=== PATIENT | female | born 1975 | race Hispanic/Latino ===

== ENCOUNTER 2024-04-07 06:45 | Day surgery (SDC) | payer BC ==
[2024-03-29 09:01] VITALS: BP 144/84; PULSE 74; RESP 18
[2024-03-29 09:07] LABS: BASOPHILS # (AUTO) 0.05 K/uL (0.00-0.20); BASOPHILS % (AUTO) 0.9 % (0.0-5.0); EOSINOPHILS # (AUTO) 0.15 K/uL (0.00-0.70); EOSINOPHILS % (AUTO) 2.7 % (0.0-8.0); HEMATOCRIT 45.9 % (36-48); IMMATURE GRANULOCYTE ABSOLUTE 0.03 K/uL (0-1); LYMPHOCYTES # (AUTO) 1.9 K/uL (1.0-4.8); LYMPHOCYTES % (AUTO) 33.6 % (21.0-51.0); MEAN CORPUSCULAR HEMOGLOBIN 31.2 pg (27.0-33.0); MEAN CORPUSCULAR HGB CONC 34.2 g/dL (32.0-36.0); MEAN CORPUSCULAR VOLUME 91.1 fL (79-99); MONOCYTES # (AUTO) 0.5 K/uL (0.1-1.0); MONOCYTES % (AUTO) 9.7 % (3.0-13.0); NEUTROPHILS # (AUTO) 2.9 K/uL (1.8-7.7); NEUTROPHILS % (AUTO) 52.6 % (40.0-77.0); PLATELET COUNT (AUTO) 45 K/uL (130-400); RED BLOOD CELL COUNT(AUTO) 5.04 MIL/uL (4.00-5.50); RED CELL DISTRIBUTION WIDTH 14.3 % (11.0-15.5); WHITE BLOOD COUNT (AUTO) 5.6 K/uL (4.8-10.8)
[2024-03-29 09:16] LABS: CREATININE 0.7 mg/dL (0.5-1.0)
[2024-03-29 09:20] LABS: INR 1.02 (0.85-1.15)
[~2024-04-07] VITALS: Ht 149.9 cm; Wt 93.1 kg
[2024-04-07] VITALS (16 sets, daily range): BP systolic 113–149; BP diastolic 66–86; PULSE 58–72; RESP 13–18
[~2024-04-07 06:45] MED LIST: [UNRECOGNIZED DRUG - OTHER] SQ
[2024-04-07] MEDS ORDERED: CLINDAMYCIN IVPB 600MG/50ML 50 ML IV ONE (07:40)
[2024-04-07] MEDS ORDERED: IOHEXOL-350 50ML VIAL IV ONE (07:46)
[2024-04-07] MEDS: LACTATED RINGERS 1000ML 1,000 ML IV ONE (08:01)
[2024-04-07] MEDS ORDERED: MIDAZOLAM HCL 1 MG/ML 2ML VIAL ONE (08:21)
[2024-04-07] MEDS ORDERED: FENTANYL CITRATE PF 50 MCG/1 ML 2ML VIAL ONE (08:21)
[2024-04-07] MEDS ORDERED: LIDOCAINE PF 100MG/5ML (2%) SYRINGE 5ML ONE (08:21)
[2024-04-07] MEDS ORDERED: ROCURONIUM BROMIDE 10MG/1ML 5ML VL ONE (08:21)
[2024-04-07] MEDS ORDERED: PROPOFOL 10 MG/ML 20ML VIAL IV ONE (08:21)
[2024-04-07] MEDS ORDERED: EPINEPHRINE PF 1MG (1:1,000) 1 MG/ML AMP ONE (08:26)
[2024-04-07] MEDS ORDERED: BUPIVACAINE/PF 0.5% 30ML VIAL ONE (08:26)
[2024-04-07] MEDS ORDERED: ACETAMINOPHEN 1,000 MG/100 ML VIAL IV ONE (08:31)
[2024-04-07] MEDS ORDERED: MORPHINE 4 MG SYG ONE (08:31)
[2024-04-07] MEDS ORDERED: DEXAMETHASONE SOD PHOSPHATE 4 MG/ML 1ML VIAL ONE (08:46)
[2024-04-07] MEDS ORDERED: ONDANSETRON 4MG INJ ONE (08:46)
[2024-04-07] MEDS ORDERED: NEOSTIGMINE METHYLSULFATE 1MG/ML IV ONE (08:47)
[2024-04-07] MEDS ORDERED: GLYCOPYRROLATE 0.2 MG/ML 5 ML VIAL ONE (08:47)
[2024-04-07] MEDS: BUPIVACAINE/EPI/PF 0.5% 30ML VIAL IJ ONE (08:50)
[2024-04-07] MEDS ORDERED: PHENYLEPHRINE HCL 10 MG/ML 1ML VIAL IV ONE (08:52)
[2024-04-07] MEDS ORDERED: DOCU-116 PO (09:23)
[2024-04-07] MEDS ORDERED: METH-662 PO (09:23)
[2024-04-07] MEDS ORDERED: TRAM50TA4 PO (09:23)
[2024-04-07] MEDS ORDERED: GABA-529 PO (09:23)
[2024-04-07] MEDS: MEPERIDINE-PF 25 MG/ML SYG ONE (09:53)
== END 2024-04-07 11:20 | disposition home or self-care (01) ==
LOC: DAH 06:45
PROVIDERS: ATTEND Surgery
DX: K80.10 Calculus of gallbladder with chronic cholecystitis without obstruction (principal); R31.9 Hematuria, unspecified; D69.6 Thrombocytopenia, unspecified; M06.9 Rheumatoid arthritis, unspecified; M79.7 Fibromyalgia; M35.00 Sjogren syndrome, unspecified; E66.9 Obesity, unspecified; Z88.0 Allergy status to penicillin; Z79.899 Other long term (current) drug therapy
CPT/HCPCS: 80048; 84703; 85025; 85610; 85730; 36415; 47563; 81025; 88304; 74300; A6260; J1100; A4600 ×2; A4663; J7030; A4215 ×2; C1758; J7120; J3010; J3490 ×4; J2001; J0171; J2250; J2704; J2405; J2270; J2710; J0665; J2175; J2371; Q9967; G0168; A4649 ×2; A4930 ×2; A4223; A4222; A4221